=== PATIENT | female | born 1990 | race Caucasian/White ===

== ENCOUNTER 2017-03-27 13:45 | Emergency (ER) | payer OTHER ==
[~2017-03-27 13:45] MED LIST: MOTRIN600 MG PO; ~No Medications
[2017-03-28] MEDS ORDERED: PERCOCET 5/31 TABLET PO (09:49)
[2017-03-28] MEDS ORDERED: COLACE100 MG PO ×2 (09:49→10:00)
== END 2017-03-27 17:31 | disposition left against medical advice (07) ==
LOC: EME 13:45 → CT 13:45 → EDSTATUS 16:56 → EME 17:31
DX: R10.9 Unspecified abdominal pain (principal); Z53.21 Procedure and treatment not carried out due to patient leaving prior to being seen by health care provider
CPT/HCPCS: 74176; J0330; J2405; J3010

== ENCOUNTER 2017-03-27 17:29 | Day surgery (SDC) | payer OTHER ==
[~2017-03-27] VITALS: Ht 154.9 cm; Wt 101.2 kg
[2017-03-27 18:30] LABS: HEMATOCRIT 42.5 % (36.0-46.0); MCH 28.6 PG (29.0-34.0); MCHC 32.9 G/DL (30.0-36.0); MCV 86.9 FL (83-99); PLATELET COUNT 238 K/uL (156-360); RBC DIS.WIDTH-CV 12.4 % (11.8-14.6); RBC DIS.WIDTH-SD 39.6 % (39-53); RED BLOOD COUNT 4.89 M/uL (3.80-5.20); WHITE BLOOD COUNT 13.7 K/uL (4.1-10.2)
[2017-03-27 18:41] LABS: ALBUMIN 4.1 g/dL (3.2-4.8); CHLORIDE 105 mEq/L (99-109); POTASSIUM 4.1 mEq/L (3.7-5.4); SODIUM 138 mEq/L (136-147)
[2017-03-27 18:44] LABS: GLUCOSE 93 mg/dL (70-99); TOTAL PROTEIN 7.5 g/dL (6.4-8.3)
[2017-03-27 18:45] LABS: TOTAL BILIRUBIN 0.5 mg/dL (0.0-1.0)
[2017-03-27 18:47] LABS: ALKALINE PHOSPHATASE 87 IU/L (3-129); CREATININE 0.7 mg/dL (0.6-1.3); GFR ESTIMATE (CALCULATED) > 59 mL/min/
[2017-03-27 18:48] LABS: UREA NITROGEN (BUN) 10 mg/dL (9-23)
[2017-03-27 18:49] LABS: AST (GOT) 13 IU/L (2-34)
[2017-03-27 18:50] LABS: ALT (GPT) 14 IU/L (3-49)
[2017-03-27 18:56] LABS: QUANTITATIVE HCG < 4.0 MIU/ML
[2017-03-27 19:21] LABS: APPEARANCE SL.HAZY ((CLEAR)); BILIRUBIN NEGATIVE; BLOOD NEGATIVE; COLOR YELLOW ((YELLOW)); GLUCOSE (STRIP) NEGATIVE; KETONES NEGATIVE; LEUKOCYTES TRACE; NITRITE NEGATIVE; PROTEIN (STRIP) NEGATIVE; SPECIFIC GRAVITY 1.028 (1.000-1.030); UROBILINOGEN 0.2 MG/DL (0.2-1.0)
[2017-03-27 19:24] LABS: BACTERIA RARE /HPF; EPITHELIAL CELLS 1+ /HPF; MUCUS TRACE /LPF; RED BLOOD CELLS 0-5 /HPF (0-5); UCUL ADDED? NO; WHITE BLOOD CELLS 0-5 /HPF (0-5)
[2017-03-28 00:45] VITALS: BP 108/60
[2017-03-28 00:46] VITALS: BP 108/60
[2017-03-28 04:44] VITALS: BP 106/58
[2017-03-28 07:15] LABS: HEMATOCRIT 36.3 % (36.0-46.0); MCH 28.4 PG (29.0-34.0); MCHC 32.2 G/DL (30.0-36.0); MCV 88.1 FL (83-99); PLATELET COUNT 239 K/uL (156-360); RBC DIS.WIDTH-CV 12.4 % (11.8-14.6); RBC DIS.WIDTH-SD 40.2 % (39-53); RED BLOOD COUNT 4.12 M/uL (3.80-5.20); WHITE BLOOD COUNT 9.4 K/uL (4.1-10.2)
[2017-03-28 07:23] LABS: HEMOGLOBIN 11.7 G/DL (11.9-15.5)
[2017-03-28 07:39] VITALS: BP 113/57
[2017-03-28] MEDS ORDERED: COLACE100 MG PO ×2 (09:49→10:00)
[2017-03-28] MEDS ORDERED: PERCOCET 5/31 TABLET PO (09:49)
== END 2017-03-28 11:02 | disposition home or self-care (01) ==
LOC: EME 17:29 → ENRESERV 21:14 → SDC 21:36 → EME 21:36 → ENRESERV 21:44 → 2SOUTH 22:42 → ENRESERV 22:57 → 3EAST 03-28 00:39
PROVIDERS: Surgery
PROC: 0DTJ4ZZ Resection of Appendix, Percutaneous Endoscopic Approach (ICD-10-PCS; principal; 2017-03-27)
DX: K35.80 Unspecified acute appendicitis (principal); R00.0 Tachycardia, unspecified; E66.9 Obesity, unspecified; Z68.41 Body mass index [BMI] 40.0-44.9, adult
CPT/HCPCS: 80053; 81003; 84702; 85027; 88304; 99281; 99285; G0378; J0295; J0690; J1170; J3010; J7050; J7120